=== PATIENT | male | born 1955 | race Asian ===

== ENCOUNTER 2022-12-24 19:20 | Emergency (ER) | payer OTHER ==
[~2022-12-24] VITALS: Ht 170.2 cm; Wt 70.3 kg
[2022-12-24 19:25] VITALS: BP 114/67; TEMP 98.7
[2022-12-24 20:05] LABS: PLATELET COUNT 236 K/uL (142-355)
[2022-12-24 20:11] LABS: POTASSIUM 3.8 mmol/L (3.6-5.2)
[2022-12-25] MEDS ORDERED: DIVA250T2 PO (07:41)
[2022-12-25] MEDS ORDERED: DIVA500T2 PO (07:43)
[2022-12-25] MEDS ORDERED: DONEPEZIL HYDRO10 MG PO (07:43)
[2022-12-25] MEDS ORDERED: MULTIVITAMIN-MINERAL PO (07:45)
[2022-12-25] MEDS ORDERED: ZOLOFT25 MG PO (07:46)
[2022-12-25] MEDS ORDERED: MEMANTINE HCL PO (07:49)
== END 2022-12-24 21:24 | disposition still patient (30) ==
LOC: ED 19:37
PROVIDERS: Emergency Medicine Emergency Medical Services
DX: R45.6 Violent behavior (principal); R45.1 Restlessness and agitation; Z02.79 Encounter for issue of other medical certificate
CPT/HCPCS: 36415; 80053; 81002; 85027; 87635; 93005; 99283; U0003